=== PATIENT | male | born 1995 | race Caucasian/White ===

== ENCOUNTER 2020-02-22 20:33 | Emergency (ER) | payer SELFPAY ==
[~2020-02-22] VITALS: Ht 172.7 cm; Wt 81.6 kg
[2020-02-22 21:05] VITALS: Ht 172.7 cm; Wt 81.6 kg
[2020-02-23 01:29] VITALS: BP 132/88
== END 2020-02-23 01:29 | disposition home or self-care (01) ==
LOC: ED 20:33
DX: R06.02 Shortness of breath (principal); R53.83 Other fatigue; Z20.818 Contact with and (suspected) exposure to other bacterial communicable diseases
CPT/HCPCS: U0003